=== PATIENT | female | born 1985 | race Two or more races ===

== ENCOUNTER 2017-04-05 15:21 | Emergency (ER) | payer MEDICAID ==
[~2017-04-05] VITALS: Ht 162.6 cm; Wt 100.7 kg
[2017-04-05 16:18] VITALS: BP 118/71
== END 2017-04-05 17:25 | disposition home or self-care (01) ==
LOC: ER 15:50
DX: S52.501A Unspecified fracture of the lower end of right radius, initial encounter for closed fracture (principal); W19.XXXA Unspecified fall, initial encounter; Y93.67 Activity, basketball; Y99.8 Other external cause status; Y92.89 Other specified places as the place of occurrence of the external cause
CPT/HCPCS: 29125; 73110

== ENCOUNTER 2018-06-10 10:12 | Emergency (ER) | payer MEDICAID ==
[~2018-06-10] VITALS: Ht 162.6 cm; Wt 97.5 kg
[2018-06-10 11:11] LABS: Basophils # (auto) 0 uL; Basophils % (auto) 0.4 % (0.0-2.0); Eosinophils # (auto) 0.3 uL; Eosinophils % (auto) 3.9 % (0.0-7.0); Hematocrit 45.4 % (36.0-46.0); Hemoglobin 15.8 g/dL (12.2-16.2); Lymphocytes # (auto) 1.6 uL; Lymphocytes % (auto) 24.9 % (10.0-50.0); Mean Corpuscular Hemoglobin 33.6 pg (28.0-32.0); Mean Corpuscular Hgb Conc. 34.8 g/dL (32.0-36.0); Mean Corpuscular Volume 96.6 fL (80.0-100.0); Monocytes # (auto) 0.4 uL; Monocytes % (auto) 6.7 % (0.0-12.0); Neutrophils # (auto) 4.2 uL; Neutrophils % (auto) 64.1 % (37.0-80.0); Nucleated Red Blood Cells % 0.1 %; Platelet Count (auto) 309 10^3/uL (140-450); Red Cell Distribution Width 14.1 % (11.8-14.3); White Blood Cell 6.6 10^3/uL (4.4-10.8)
[2018-06-10 11:31] LABS: Albumin 4.1 g/dL (3.4-5.0); Anion Gap 9 (5-15); Blood Urea Nitrogen 8 mg/dL (7-18); Calcium 8.5 mg/dL (8.5-10.1); Carbon Dioxide 24 mmol/L (21-32); Chloride 106 mmol/L (98-107); Glucose 91 mg/dL (74-106); Magnesium 1.9 mg/dL (1.6-2.6); Potassium 3.8 mmol/L (3.5-5.1); Sodium 139 mmol/L (136-145)
[2018-06-10 11:34] LABS: Alanine Aminotransferase 170 U/L (13-56); Aspartate Aminotransferase 89 U/L (15-37); BUN/Creatinine Ratio 12.7; GFR African American 142 mL/min; GFR Non-African American 117 mL/min
[2018-06-10 11:39] LABS: Alkaline Phosphatase 82 U/L (45-117); Bilirubin, Total 0.6 mg/dL (0.2-1.0); Total Protein 7.7 g/dL (6.4-8.2)
[2018-06-10 11:58] LABS: Urine Bacteria NONE SEEN /hpf (None Seen); Urine Blood 3+ /uL (Negative); Urine Mucus FEW (None Seen); Urine WBC 13 /hpf (0 - 5)
[2018-06-10 13:23] VITALS: BP 122/85
== END 2018-06-10 13:26 | disposition home or self-care (01) ==
LOC: ER 10:14
DX: R07.89 Other chest pain (principal); N39.0 Urinary tract infection, site not specified
CPT/HCPCS: 36415; 71046; 80053; 81001; 81025; 83735; 84484; 85025; 93005

== ENCOUNTER 2024-04-18 16:40 | Emergency (ER) | payer MEDICAID ==
[~2024-04-18] VITALS: Ht 162.6 cm; Wt 88.7 kg
[2024-04-18 16:56] VITALS: BP 133/74; PULSE 98; RESP 18; O2SAT 99
[2024-04-18] MEDS: KETOROLAC TROMETH 60MG/2ML VIAL IM ONE (19:52)
[2024-04-18] MEDS ORDERED: CYCL-837 PO (20:00)
[2024-04-18] MEDS ORDERED: IBUP-1456 PO (20:00)
== END 2024-04-18 20:07 | disposition home or self-care (01) ==
LOC: ER 16:40
DX: M54.42 Lumbago with sciatica, left side (principal)
CPT/HCPCS: 96372; 99283; J1885